=== PATIENT | male | born 1940 | race Hispanic/Latino ===

== ENCOUNTER 2017-07-29 06:38 | Day surgery (SDC) | payer MEDICARE ==
[2017-07-29 07:23] LABS: Basophils % (Auto) 0.8 % (0.0-1.8); Eosinophils # (Auto) 0.3 K/mm3 (0.0-0.4); Eosinophils % (Auto) 6.1 % (0.0-4.3); Hematocrit 39.2 % (35.5-45.6); Hemoglobin 12.9 gm/dl (11.8-15.2); Lymphocytes # (Auto) 1.5 K/mm3 (1.2-5.4); Lymphocytes % (Auto) 28.1 % (13.4-35.0); Mean Corpuscular HGB Conc 33 % (32-34); Mean Corpuscular Hemoglobin 29 pg (28-32); Mean Corpuscular Volume 87 fl (84-94); Monocytes # (Auto) 0.5 K/mm3 (0.0-0.8); Monocytes % (Auto) 8.6 % (0.0-7.3); Platelet Count 173 K/mm3 (140-440); Red Blood Count 4.52 M/mm3 (3.65-5.03); Red Cell Distribution Width 15.1 % (13.2-15.2)
[2017-07-29 07:33] LABS: INR 0.95 (0.87-1.13)
[2017-07-29 07:35] LABS: Calcium 9.2 mg/dL (8.4-10.2)
[2017-07-29] MEDS ORDERED: NACL 0.9% 500 ML 500 ML IV SCH (08:00)
[2017-07-29] MEDS ORDERED: NACL 0.9% 1000 ML 1,000 ML IV SCH (08:00)
[2017-07-29] MEDS ORDERED: NITROGLYCERIN SYRINGE 3 ML ONE (10:29)
[2017-07-29] MEDS ORDERED: CALAN ONE (10:29)
[2017-07-29] MEDS ORDERED: HEPARIN/NS 5000 UNIT/500ML(CATH LAB) 1,000 ML IR ONE (10:30)
[2017-07-29] MEDS ORDERED: XYLOCAINE 1% 20 mL ONE (10:30)
[2017-07-29] MEDS ORDERED: XYLOCAINE 2% INFILTRATI ONE (10:31)
[2017-07-29] MEDS ORDERED: HEPARIN 10,000 UNITS/10 ML ONE (10:50)
[2017-07-29] MEDS: VERSED ONE ×2 (10:58→11:14)
[2017-07-29] MEDS: SUBLIMAZE ONE ×2 (10:58→11:14)
--- NOTE | 2017-07-29 12:31 | Cardiac Catherization Report ---
PERIPHERAL ANGIOGRAM The patient is a 76-year-old white gentleman with known history of claudication, underlying chronic kidney disease, known severe coronary artery disease in the past. Because of claudication, he is scheduled for peripheral angiogram for further evaluation of his severe peripheral vascular disease. The patient had intervention of the superficial femoral arteries bilaterally in 2008. The patient was noted to have elevated BUN and creatinine. The patient was started on IV fluids for further evaluation. The patient was brought to the catheterization laboratory in a fasting condition. The right wrist area and forearm thoroughly cleansed with Betadine solution. Sterile drapes were applied. Local anesthesia was achieved using 2% Xylocaine. The patient was sedated with IV Versed and fentanyl. Local anesthesia given in the right wrist area and right radial artery puncture was made using 21-gauge arterial puncture needle. Subsequently, 5-Indonesian sheath was introduced. A 5-Indonesian pigtail was advanced into the abdominal area to the L1 area under fluoroscopy. Abdominal aortogram was performed using 20 mL of dye at 10 mL per second using DSA. Subsequently, a pigtail catheter was advanced into the L4 area just above the bifurcation of the iliacs and iliac angiography with runoff was performed using 70 mL of dye at 10 mL per second. Subsequently, angiogram of the iliac arteries were obtained in left anterior oblique view using 20 mL of dye. At the end of the procedure, catheter and sheath were removed. Good hemostasis was achieved with a radial band. The patient was sedated with IV Versed and fentanyl. Sedation started at 10:54 a.m. and ended at 11:24 a.m. The patient was monitored throughout the procedure with a pulse oximetry, EKG monitoring, and blood pressure monitoring. The patient tolerated the procedure well. No untoward complications were noted. Following findings were noted. Abdominal aortogram showed very mild diffuse atherosclerosis, but no significant stenosis or aneurysmal dilatation noted. Bilateral renal arteries are patent. Iliac vessels, his right common iliac shows calcification in the proximal part, along with 60-70% lesion. Right external iliac artery without any significant disease. Right internal iliac artery is patent. Right external iliac artery without significant disease. Left common iliac artery shows moderate 40% proximal lesion(this area is not visualised on SIMONS projection because of artifact from metallic hardware from back surgery. Right internal iliac artery, which is not well visualized. Right external iliac artery shows mild to moderate disease. Right superficial femoral artery shows severe diffuse disease including proximal 80% focal lesion and moderate 50-70% mid disease followed by total occlusion in the distal area. This reconstitutes in the very distal part of the SFA. There is a short occlusion. Infrapopliteal vessels shows 2-vessel bypass with widely patent anterior tibial and posterior tibial arteries. Left superficial femoral artery shows moderate 50% disease in the mid part and distally there are 3-vessel runoff. Left anterior tibial artery has a long 80% lesion in the proximal part. Both common femoral arteries and popliteal arteries are without significant disease. FINAL IMPRESSION: 1. Abdominal aorta shows mild disease with no aneurysmal dilation and bilateral patent arteries are noted. 2. Moderate 40% lesion at ostium /proximal part of the left common iliac at the origin. The internal iliac artery is not well visualized. Right common iliac artery shows moderate to severe disease in the ostium to proximal part. 3. Right superficial femoral artery shows severe diffuse throughout with occlusion in the mid to distal part with reconstitution in the distal SFA. Left common femoral artery without significant disease. Left SFA is patent with moderate mid disease, 50%. There is 2-vessel runoff with no visualization of the peroneal artery on the right side and 3-vessel runoff on the left side noted. At this time, the patient has moderate iliac vessel disease, which can be followed with risk factor modification/medical therapy Also, he has a right femoral artery in mid to distal part occlusion. Patient was seen in consultation by Dr.David Adams,who is going to follow patient. The patient tolerated the procedure well. The patient will be continued on IV hydration for the next 4-6 hours post-procedure before discharge. His BNP will be monitored. The patient tolerated the procedure well. No untoward complications were noted. JOB# [id number] STACY/ENRIQUE JULIEN
[2017-07-29 16:27] VITALS: BP 148/61
== END 2017-07-29 16:25 | disposition home or self-care (01) ==
LOC: CATHLABREC 06:38
PROVIDERS: ATTEND Internal Medicine
DX: I70.213 Atherosclerosis of native arteries of extremities with intermittent claudication, bilateral legs (principal); I25.10 Atherosclerotic heart disease of native coronary artery without angina pectoris; N18.9 Chronic kidney disease, unspecified
CPT/HCPCS: 36200; 36415; 75625; 75716; 80048; 82962; 85025; 85610; 85730; 99156; 99157; C1894; J1644; J2250; J3010; J7030; J7040; Q9967